=== PATIENT | female | born 1995 | race Caucasian/White ===

== ENCOUNTER 2020-03-31 04:55 | Emergency (ER) | payer MEDICAID ==
[~2020-03-31] VITALS: Ht 160 cm; Wt 61.2 kg
--- NOTE | 2020-03-31 05:04 | NUR ---
PT W/C ASSISTED TO ER BED 11
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
[2020-03-31 05:07] VITALS: BP 149/74
[2020-03-31] MEDS ORDERED: BACITRACIN OP OINT 500 UNITS/GM 3.5 GM TUBE OP SCH (05:20)
[2020-03-31] MEDS ORDERED: BACITRACIN OINT 500 UNITS/GM PKT TP ONE (05:20)
--- NOTE | 2020-03-31 05:28 | NUR ---
EMT AT BEDSIDE CLEANING AND DRESSING WOUNDS.
[2020-03-31 06:10] VITALS: BP 149/74
--- NOTE | 2020-03-31 06:10 | NUR ---
Patient discharged with v/s stable. Written and verbal after care instructions given and explained. Patient alert, oriented and verbalized understanding of instructions. Ambulatory with steady gait. All questions addressed prior to discharge. ID band removed. Patient advised to follow up with PMD. Rx of PERCOCET, BACITRACIN, IBUPROFEN given. Patient educated on indication of medication including possible reaction and side effects. Opportunity to ask questions provided and answered.
== END 2020-03-31 06:10 | disposition home or self-care (01) ==
LOC: MED 04:55
DX: S50.811A Abrasion of right forearm, initial encounter (principal); S70.211A Abrasion, right hip, initial encounter; S90.812A Abrasion, left foot, initial encounter; S90.811A Abrasion, right foot, initial encounter; S60.512A Abrasion of left hand, initial encounter; S60.511A Abrasion of right hand, initial encounter; V00.831A Fall from motorized mobility scooter, initial encounter; Y93.I9 Activity, other involving external motion; Y92.89 Other specified places as the place of occurrence of the external cause; Y99.8 Other external cause status
CPT/HCPCS: 99283